=== PATIENT | male | born 1965 | race Caucasian/White ===

== ENCOUNTER → 2017-03-25 | Outpatient (CLI) | payer OTHER | LOC: NM 12:30 | DX: I25.119 Atherosclerotic heart disease of native coronary artery with unspecified angina pectoris (principal); I11.0 Hypertensive heart disease with heart failure; I50.32 Chronic diastolic (congestive) heart failure; R53.83 Other fatigue; R06.02 Shortness of breath; Z98.61 Coronary angioplasty status; E78.5 Hyperlipidemia, unspecified; I25.9 Chronic ischemic heart disease, unspecified; R93.1 Abnormal findings on diagnostic imaging of heart and coronary circulation | CPT/HCPCS: 78452; 93017; A9502; J2785 ==

== ENCOUNTER → 2021-04-02 | Outpatient (CLI) | payer BC ==
[~2021-04-02] MED LIST: IMDUR ER TAB 3030 MG PO
== END ==
LOC: KOH-I 10:13
DX: R07.81 Pleurodynia (principal)
CPT/HCPCS: 71046